=== PATIENT | female | born 1945 | race Caucasian/White ===

== ENCOUNTER 2016-11-11 23:00 | Inpatient (IN) | payer MEDICARE ==
--- NOTE | ~2016-11-11 | CN ---
Consultation Report [facility] [address] [place]. [address] NAME: LOUISE SANTACRUZ : 47 STATUS : ADM IN [facility]#: [id number] AGE: 71 ADM/REG DATE : 11/12/16 MR#: [id number] REPORT SERV DATE: 11/13/16 DICTATED BY: ERIN PANDYA DATE: 11/13/16 REPORT STATUS : Draft TRANSCRIBED BY: KRISTYN DATE: 11/13/16 INFECTIOUS DISEASE CONSULT DATE OF CONSULTATION: REFERRING PHYSICIAN: Tommy Ureña M.D. REASON FOR REFERRAL: Evaluation and treatment of possible sternal wound infection. HISTORY OF PRESENT ILLNESS: This patient is a 71-year-old female. She has a history of hypertension, diabetes mellitus, hyperlipidemia, peripheral vascular disease, coronary artery disease. She had coronary artery bypass grafting in 12/2015. She has known peripheral vascular disease in her legs and has had increasing pain and came in for that yesterday and was admitted. It was noted after admission that she had some drainage from her sternum. She states that that has been going on since shortly after the procedure in 2015. There was a culture done in 03/2015 that grew methicillin-sensitive Staph aureus. She had the wound care for about a year after the procedure in Dr. Espana's office and it would almost close and crust over, but has never gone away completely. She has had the wound care, been on no antibiotics for more than a year, and has not really troubled her other than occasional drainage. She has not had fevers, chills, or night sweats. No nausea or vomiting. No malaise or flu-like symptoms. Last evening, when the area was pressed, there was copious purulent drainage that has been submitted for culture and is growing Staph aureus already. She is afebrile now and feeling okay. PAST MEDICAL HISTORY: Otherwise unremarkable. MEDICATIONS: On no antibiotics prior to coming in. She is now on vancomycin. ALLERGIES: SHE HAS NO KNOWN ANTIMICROBIAL ALLERGIES. SOCIAL HISTORY: She lives at home with her sister. She is single. She is a nonsmoker, has no history of alcohol or substance abuse. FAMILY HISTORY: Noncontributory. PHYSICAL EXAMINATION: GENERAL: A nontoxic, elderly female, in no acute distress. Alert and oriented x3. VITAL SIGNS: Her temperature at present is 98.5, pulse 72, respirations 18, blood pressure 103/53, her weight is 89 kg. HEENT: Sclerae clear. No oral lesions. NECK: Supple. LUNGS: Clear. HEART: Regular rate and rhythm. A sternal incision has a shallow ulceration in the mid Consultation Report [facility] [address] [place]. [address] NAME: LOUISE SANTACRUZ : 47 STATUS : ADM IN PAT#: [id number] AGE: 71 ADM/REG DATE : 11/12/16 MR#: [id number] REPORT SERV DATE: 11/13/16 DICTATED BY: ERIN PANDYA DATE: 11/13/16 REPORT STATUS : Draft TRANSCRIBED BY: KRISTYN DATE: 11/13/16 sternum. Several centimeters above that is about a 1 centimeter opening with purulent drainage coming from it. ABDOMEN: Soft, nontender. Positive bowel sounds. EXTREMITIES: Mildly edematous. Very tender to touch both feet from the ankles down to the tips of the toes. No signs of infection. No open lesions or ulcerations. LABORATORY DATA: Her white count was 13.8 when she came in, 12.4 today with hematocrit of 29.5, and platelets 425. The differential on the white blood cell count is normal. BUN and creatinine 23 and 1.3. 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 There has been no systemic signs of infection and per the patient's history, no evidence that she has felt the progression locally and despite not being on any antibiotics for over a year. RECOMMENDATIONS: 1. Follow up the cultures from yesterday to get the final sensitivity on the organism. 2. We will cover with Ancef. 3. Agree with MRI to see the extent of this. 4. She stated she will not agree to any sort of surgery such as incision and drainage, so it may be we have to look at the situation of long-term suppression. Finally, I will follow the patient with you. I appreciate very much your consulting on this patient. JEREMIE Erin Pandya M.D. / [id number] CC: Matthew Layne MD
--- NOTE | ~2016-11-11 | OP ---
Record Of Operation [facility] [address] [place]. [address] NAME: LOUISE SANTACRUZ : 47 STATUS : ADM IN PAT#: [id number] AGE: 71 ADM/REG DATE : 11/12/16 MR#: [id number] REPORT SERV DATE: 11/18/16 DICTATED BY: TERRY MERAZ DATE: 11/18/16 REPORT STATUS : Draft TRANSCRIBED BY: MODL DATE: 11/18/16 DATE OF PROCEDURE: 11/14/2016 PREOPERATIVE DIAGNOSIS: Sternal wound infection (Dr. Espana's patient). POSTOPERATIVE DIAGNOSIS: Sternal wound infection (Dr. Espana's patient). PROCEDURE: I and D of sternum with removal of two plates and two wires and vacuum-assisted closure placement. MEDIA/INSTRUCTIONAL DESIGNER: Ruel Casas. ANESTHESIA: Dr. Grimes. FINDINGS: Midportion of the wound excised, bone is stable. COMPLICATIONS: None. CONDITION: Fair to PACU, will bring back next week for possible closure. DESCRIPTION OF PROCEDURE: After informed consent was obtained from the patient, she was brought to the operating room, laid in supine position, and prepped and draped in the normal fashion after general anesthesia was induced. The draining skin wound was incised sharply and dissection carried down through a very hard course, tough indurated tissue to the sternum. Bovie electrocautery was then used to expose both sternal plates that were involved in the wound and two separate wires that were involved in the wound. A screwdriver was then used to remove all screws and both plates. Wires were cut and removed. Approximately 2 L of pulse lavage irrigation was used to irrigate the entire wound bed. The bone was stable and did not appear infected. A VAC sponge was cut to an appropriate size and placed in the wound bed and set to 125 mm of continuous suction. The plan will be to bring her back early next week for possible closure. Thank you end dictation please send a copy this to the patient's chart as well as to the [facility] clinic care mining Terry GIPSON/KRISTYN Matthew Keller#: [id number] / [id number] CC: Matthew Layne MD Record Of Operation [address] [address] NAME: LOUISE SANTACRUZ : 47 STATUS : ADM IN PAT#: [id number] AGE: 71 ADM/REG DATE : 11/12/16 MR#: [id number] REPORT SERV DATE: 11/18/16 DICTATED BY: TERRY MERAZ DATE: 11/18/16 REPORT STATUS : Draft TRANSCRIBED BY: MODRebeka DATE: 11/18/16 [facility]
--- NOTE | ~2016-11-11 | CN ---
Consultation Report [facility] [address] [place]. [address] NAME: LOUISE SANTACRUZ : 47 STATUS : ADM IN [facility]#: [id number] AGE: 71 ADM/REG DATE : 11/12/16 MR#: [id number] REPORT SERV DATE: 11/19/16 DICTATED BY: TERRY MERAZ DATE: 11/18/16 REPORT STATUS : Draft TRANSCRIBED BY: MODRebeka DATE: 11/18/16 CONSULTATION DATE OF CONSULTATION: 11/13/2016 REFERRING PHYSICIAN: Infectious Disease. REASON FOR REFERRAL: Evaluation for operative intervention for sternal infection. HISTORY OF PRESENT ILLNESS: This is a 71-year-old female, who presented to the hospital for foot and leg pain and swelling. She describes her legs and feet as hot and burning. She says this has been going on for progressively a few weeks but has gotten recently worse in the last couple days. She reports chronic drainage from her sternal wound after a coronary artery bypass graft and mitral valve repair approximately a year and a half ago. This was performed by Dr. Rajendra Espana. She has been treated by him and his team for approximately one year for sternal incision drainage wounds and initially, there was improvement but more recently, over the last couple months, this has resumed drainage. PAST MEDICAL HISTORY: Significant for coronary artery disease, hypertension, hyperlipidemia, diabetes mellitus, congestive heart failure, CVA, UTI, MSSA bacteremia, peripheral artery disease, and carotid stenosis. PAST SURGICAL HISTORY: Includes coronary artery bypass grafting and mitral valve repair in 2014. SOCIAL HISTORY: She quit smoking in 2014. No alcohol or drug use. FAMILY HISTORY: Significant for end-stage renal disease, diabetes mellitus. ALLERGIES: NO KNOWN DRUG ALLERGIES. REVIEW OF SYSTEMS: Otherwise negative that which was stated in the HPI. PHYSICAL EXAMINATION: VITAL SIGNS: Blood pressure is 129/60, temperature 97.2, heart rate is 82, respiratory rate of 18, height of 167 cm and weight is 89.5 kg. GENERAL: She is afebrile and vital signs are all stable. HEENT: Normocephalic, atraumatic with no scleral icterus. NECK: Supple with no thyromegaly. CHEST: Clear to auscultation bilaterally with draining purulent drainage from the midportion of her sternal incision. HEART: Regular rate and rhythm with no murmurs, rubs, or gallops. ABDOMEN: Soft, nontender, and nondistended. Consultation Report [place] [address] [place]. [address] NAME: LOUISE SANTACRUZ : 47 STATUS : ADM IN PAT#: [id number] AGE: 71 ADM/REG DATE : 11/12/16 MR#: [id number] REPORT SERV DATE: 11/19/16 DICTATED BY: TERRY MERAZ DATE: 11/18/16 REPORT STATUS : Draft TRANSCRIBED BY: KRISTYN DATE: 11/18/16 EXTREMITIES: Warm with nonpalpable distal pulses. MUSCULOSKELETAL: Grossly intact. NEUROLOGIC: Grossly intact. IMPRESSION AND PLAN: Draining sternal wound status post coronary artery bypass graft and impression I do not believe a conservative take is appropriate at this time. I believe she needs operative intervention with debridement. This is being scheduled for , 11/14/2016. I have explained the risks, benefits, and alternatives of the surgery to her and she understands and wished to proceed with surgery. CCR/MODL Terry Meraz M.D. / [id number] CC: Matthew Layne MD [facility]
--- NOTE | ~2016-11-11 | CN ---
Consultation Report [facility] [address] [place]. [address] NAME: ALYSON SANTACRUZ : 47 STATUS : ADM IN [facility]#: [id number] AGE: 71 ADM/REG DATE : 11/12/16 MR#: [id number] REPORT SERV DATE: 11/19/16 DICTATED BY: NUSRAT RIBEIRO DATE: 11/15/16 REPORT STATUS : Draft TRANSCRIBED BY: KRISTYN DATE: 11/15/16 ORTHOPEDIC FOOT AND ANKLE CONSULTATION DATE OF CONSULTATION: REASON FOR CONSULTATION: Right great toe pain and swelling. HISTORY OF PRESENT ILLNESS: Alyson Santacruz is a pleasant 71-year-old female with a primary complaint of right foot pain, but also purulent drainage from the sternal wound from previous CABG. Upon admission, the patient noticed increasing weakness, lower extremity edema, and soreness and pain in her legs. She has some foot pain as well as calf pain. It is 10/10 in severity. She has been unable to walk because of the severity of her pain. She has been evaluated in the past by Dr. Felipe for known peripheral vascular disease. On the date of admission (11/12/2016), the patient also had some confusion and disorientation. CABG was in 2014. She has had chronic purulent drainage from this wound ever since that surgery. Limited pain. She denies chest pain. REVIEW OF SYSTEMS: The patient was in her usual state of good health at the time of the evaluation. She denied fevers, chills, nausea, vomiting, abdominal pain, shortness of breath, or chest pain. PAST MEDICAL HISTORY: Coronary artery disease, status post CABG in 2014; hypertension; cholesterol; diabetes with neuropathy; history of gout; congestive heart failure; stroke with bilateral basal ganglia lacunar; congestive heart failure with ejection fraction of 30%; mitral valve repair; urinary tract infection, MSSA bacteremia; and peripheral vascular disease. PAST SURGICAL HISTORY: CABG in 2015 and mitral valve repair. ALLERGIES: NO KNOWN DRUG ALLERGIES. SOCIAL HISTORY: She quit smoking in 2014. No alcohol abuse. She lives in [place], [place], with her sister. She is single without children. Ambulates with a cane. No alcohol use. MEDICATIONS: Upon admission include Goody's Powder, Lipitor, and Neurontin. PHYSICAL EXAMINATION: GENERAL: Reveals an age-appropriate female who is alert and oriented x3. VITAL SIGNS: Her temperature is 97.6, heart rate 72, respirations are 16, and BMI on 11/14/2016 was reported as 40. HEENT: Her pupils are equal to light and reactive. MUSCULOSKELETAL: No tenderness with range of motion of her cervical spine. Sternal dressings are placed. Consultation Report [place] [address] [facility]. [address] NAME: ALYSON SANTACRUZ : 47 STATUS : ADM IN PAT#: [id number] AGE: 71 ADM/REG DATE : 11/12/16 MR#: [id number] REPORT SERV DATE: 11/19/16 DICTATED BY: NUSRAT RIBEIRO DATE: 11/15/16 REPORT STATUS : Draft TRANSCRIBED BY: KRISTYN DATE: 11/15/16 ABDOMEN: Obese. EXTREMITIES: Gentle range of motion of her bilateral upper extremities and left lower extremities nontender. On the right great toe, there is exquisite tenderness with range of motion of the right hallux. There is surrounding erythema. There are no open skin lesions. There is mild tenderness to palpation of the MTP joint, but most of the tenderness seems to be at the IP joint level, which is where the most of the erythema is located. Dorsalis pedis and posterior tibial pulses are present, but diminished. No lymphatic streaking. No tenderness with range of motion of the midfoot, hindfoot, or ankle. Sensation to light touch is decreased in a "stocking" distribution bilaterally. X-RAYS: X-rays taken on 11/14/2016 shows periarticular erosions at the proximal phalanx. This was on the medial and lateral aspects of the joint. She also has a plantar and posterior calcaneal spur. Arterial Dopplers performed on 11/12/2016 are consistent with moderately severe peripheral vascular disease (see report). Venous Doppler exam on 11/14/2016 was negative for DVT bilaterally. IMPRESSION: 1. Gout, right great toe. 2. 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 3. Diabetes mellitus with neuropathy. 4. Bilateral peripheral vascular disease. PLAN: Lengthy discussion with the patient and her family regarding her diagnosis and treatment options. I think these symptoms all represent gout. She has a known history of gout with gout involving the right long finger of the DIP joint. She has a large tophi involving her hand at this specific joint. This pain in the right foot is acute. It came on suddenly. There is no history of skin lesions or skin defect. With her history of gout, the above-mentioned symptoms, as well as x-ray findings (periarticular erosions), I feel this represents gout. I would like to keep a close eye on her. I have asked her to be weightbearing as tolerated in a postop shoe. I would recommend anti-inflammatory medications or steroid medications if possible. We could also consider some of the gout medicines, particularly allopurinol which may decrease the size of the gouty tophus involving her right long finger. Colchicine would be another medicine, which may decrease her symptoms. Certainly, ice and elevation would be helpful as well. I appreciate the opportunity to participate in the care of this patient. Please feel free to call me on my cell phone at [phone]. Otherwise, I would like to see this patient in followup in my office. I gave her a copy of my business card. ADDENDUM Fifty minutes was spent reviewing this case including reviewing of the medical records as well as [id number] time with the patient and her visiting family members to discuss her diagnosis and treatment options. Consultation Report [address] [place]. [address] NAME: ALYSON SANTACRUZ : 47 STATUS : ADM IN [facility]#: [id number] AGE: 71 ADM/REG DATE : 11/12/16 MR#: [id number] REPORT SERV DATE: 11/19/16 DICTATED BY: NUSRAT RIBEIRO DATE: 11/15/16 REPORT STATUS : Draft TRANSCRIBED BY: KRISTYN DATE: 11/15/16 JENN/KRISTYN Nusrat Ribeiro MD / [id number] / [id number] CC: Matthew Layne MD
--- NOTE | ~2016-11-11 | DS ---
Discharge Summary [facility] [address] [place]. [address] NAME: LOUISE SANTACRUZ : 47 STATUS : ADM IN [facility]#: [id number] AGE: 71 ADM/REG DATE : 11/12/16 MR#: [id number] REPORT SERV DATE: 11/26/16 DICTATED BY: DEIDRE ROMERO DATE: 11/25/16 REPORT STATUS : Draft TRANSCRIBED BY: KRISTYN DATE: 11/25/16 ADMISSION DATE: 11/12/2016 DISCHARGE DATE: 11/25/2016 CONSULTATIONS: 1. Cardiothoracic Surgery, Dr. Terry Small. 2. Infectious Disease, Dr. Rafael Anaya. 3. Orthopedic Surgeon, Dr. Dickerson. PROCEDURE: I and D of sternum with removal of two plates and two wires and vacuum-assisted closure placement. INDICATION FOR PROCEDURE: Sternal wound infection. DISCHARGE DIAGNOSES: 1. Postoperative complication of a sternal wound infection. 2. History of coronary artery disease, status post CABG; peripheral arterial disease; hypertension; and diabetes mellitus. 3. Chronic systolic congestive heart failure, ejection fraction of 30%. 4. History of cerebrovascular accident with bilateral basal ganglia lacunar. 5. Mitral valve repair. 6. History of urinary tract infection. 7. History of methicillin-sensitive Staphylococcus aureus bacteremia. 8. Acute kidney injury. 9. Acute gouty arthritis. DISCHARGE CONDITION: Stable. HISTORY OF PRESENT ILLNESS: Please make reference to Dr. Tommy Ureña's dictation on 11/04/2016 for detailed HPI. In brief, this is a 71-year-old female with medical history of coronary artery disease who recently had a CABG but presented to the hospital with complaints of purulent drainage from a sternal wound. It was noted on presentation that the patient reported severe chest pain of 10/10 severity. The patient was also noted to be confused, to be disoriented on presentation. Most of the history was reported by the niece. Of note, the patient underwent CABG in 2014. In the ER, patient was found to have a temperature of 98.6, pulse of 97 beats per minute, and blood pressure 182/81. Physical examination was noted for a sternal wound that had a small ulcer and blister with surrounding slight erythema. LABORATORY DATA: Significant for WBC of 13.8, creatinine of 1.37 from a baseline of 0.9. Urinalysis was negative. Troponin was negative. CT scan of the head shows no acute intracranial process. An assessment of standard wound infection with encephalopathy due to sepsis was made in the ER, the patient was admitted to the hospital for further evaluation. HOSPITAL COURSE: Standard wound infection. The patient was reported to have had a coronary artery bypass surgery in 2014 but presented to the hospital during this admission with Discharge Summary [address] [address] NAME: LOUISE SANTACRUZ : 47 STATUS : ADM IN PAT#: [id number] AGE: 71 ADM/REG DATE : 11/12/16 MR#: [id number] REPORT SERV DATE: 11/26/16 DICTATED BY: DEIDRE ROMERO DATE: 11/25/16 REPORT STATUS : Draft TRANSCRIBED BY: KRISTYN DATE: 11/25/16 complaints of chest pain with purulent drainage from the sternal wound. Also noted to have some skin erythema and changes. The patient was also noted to be confused on presentation with presence of elevated WBC. Blood cultures were taken. The patient was started on IV Ancef given the previous history of MSSA bacteremia. Cardiothoracic surgery was consulted. They recommended an incision and drainage of the wound. ID was also consulted for IV antibiotics guidance. The patient underwent I and D drainage during the course of this admission with secondary closure with placement of a wound vacuum-assisted closure. Postop, the patient had no significant complication. ID recommended the patient to receive a total duration of four weeks of IV antibiotics. Given the presence of elevated WBC with acute confusion and tachycardia on presentation, the patient met criteria for sepsis. At the time of discharge, the patient had no further episode of tachycardia, WBC had returned back to baseline. The patient had no further episode of acute confusion. Memory was intact and alert. The patient was recommended to go to rehab for further rehabilitation due to prolonged hospital stay and physical deconditioning. The patient will receive IV antibiotics for four weeks at the rehab facilities. This was arranged prior to discharge. Acute kidney injury on chronic kidney disease, on presentation. The patient's creatinine was 1.3. The patient's last known baseline was 0.9. The patient received IV fluids, and the patient's creatinine returned back to baseline prior to discharge. Acute gouty arthritis of the right foot. The patient was also noted to have had an acute gout flare ups. Orthopedic surgeon was consulted. Given worsening foot pain by physical examination, it does confirm the patient had gout. The patient was started on p.o. prednisone with good response. After the acute flare had resolved, the patient was placed on allopurinol 100 mg p.o. b.i.d. for management of acute gouty arthritis. Chronic systolic heart failure. The patient remained euvolemic throughout the course of this admission. The patient was continued on all cardiac medications. Diabetes mellitus. The patient's blood sugar was tightly controlled with insulin during the course of this admission. DISCHARGE DISPOSITION: To [facility] when accepted. DISCHARGE ACTIVITY: As tolerated. DISCHARGE FOLLOWUP: To follow up with primary care physician as an outpatient. PATRICIA/KRISTYN Deidre Romero MD / [id number] Discharge Summary [address] [address] NAME: LOUISE SANTACRUZ : 47 STATUS : ADM IN [facility]#: [id number] AGE: 71 ADM/REG DATE : 11/12/16 MR#: [id number] REPORT SERV DATE: 11/26/16 DICTATED BY: DEIDRE ROMERO DATE: 11/25/16 REPORT STATUS : Draft TRANSCRIBED BY: KRISTYN DATE: 11/25/16 CC: MD Joseph Jones MD
--- NOTE | ~2016-11-11 | OP ---
Record Of Operation [facility] [address] [place]. [address] NAME: LOUISE SANTACRUZ : 47 STATUS : ADM IN PAT#: [id number] AGE: 71 ADM/REG DATE : 11/12/16 MR#: [id number] REPORT SERV DATE: 11/19/16 DICTATED BY: TERRY MERAZ DATE: 11/18/16 REPORT STATUS : Draft TRANSCRIBED BY: MODL DATE: 11/18/16 DATE OF PROCEDURE: 11/17/2016 PREOPERATIVE DIAGNOSIS: Sternal wound infection. POSTOPERATIVE DIAGNOSIS: Sternal wound infection. PROCEDURES: 1. Washout of sternal wound. 2. Bilateral pectoralis flaps. 3. Secondary closure. SURGEON: Terry Meraz M.D. DIAMOND CLEANER: Evelyn. FINDINGS: Good wound bed with stable drains with KANU x2. COMPLICATIONS: None. CONDITION: Stable to PACU. HISTORY: The patient is a 71-year-old female, who had undergone coronary artery bypass grafting and mitral valve repair by Dr. Espana, approximately a year and a half ago. She had presented to the hospital with draining purulent fluid and was brought to the operating room approximately 4 days prior for debridement of the wound. A VAC was placed. She was brought back for possible closure. DESCRIPTION OF PROCEDURE: After informed consent was obtained from the patient, she was brought to the operating room, laid in supine position. Previous VAC sponge was removed and she was prepped and draped in the normal fashion after general anesthesia was induced. Approximately 2 L of normal saline pulse lavage was performed to the wound bed. The bone was good and stable. Bilateral advancement flaps were made of the pectoralis muscle. KANU drains were placed under both flaps and brought out through a remote incision. Interrupted 2-0 PDS sutures were placed in a [id number] fashion to reapproximate the pectoralis flaps. The skin, subcutaneous, and subcuticular tissue were then brought together using Vicryl and Monocryl sutures. The skin was stapled. Overall the patient tolerated the procedure well and was transported to PACU in stable condition. CCR/MODL Terry Meraz M.D. Record Of Operation [facility] [address] [place] [id number] NAME: LOUISE SANTACRUZ : [birth year] STATUS : ADM IN PAT#: [id number] AGE: 71 ADM/REG DATE : 11/12/16 MR#: [id number] REPORT SERV DATE: 11/19/16 DICTATED BY: TERRY MERAZ DATE: 11/18/16 REPORT STATUS : Draft TRANSCRIBED BY: MODL DATE: 11/18/16 / [id number] CC: Matthew Layne MD [facility]
--- NOTE | ~2016-11-11 | HP ---
History And Physical [place] [id number] [facility] [place]. [address] NAME: LOUISE SANTACRUZ : 47 STATUS : ADM IN [facility]#: [id number] AGE: 71 ADM/REG DATE : 11/12/16 MR#: [id number] REPORT SERV DATE: 11/12/16 DICTATED BY: YOLANDA VALDEZ DATE: 11/12/16 REPORT STATUS : Draft TRANSCRIBED BY: MODL DATE: 11/12/16 DATE OF ADMISSION: 11/12/2016 CHIEF COMPLAINT: A 71-year-old female presenting with a primary complaint of leg pain, but also purulent drainage from her sternal wound from previous CABG. HISTORY OF PRESENTING ILLNESS: The patient's history was obtained through careful interview with patient and two nieces, coupled with review of [facility] and [facility]. The patient states that for a couple of days she has been having increasing weakness, lower extremity edema, and a primary complaint of soreness and pain in her legs. The pain is described mostly in her feet, but also up into her calves. It gets to a 10/10 severity pain. She has been unable to walk today because of severity of pain. She has been evaluated in the past by Dr. Felipe, vascular surgeon, for peripheral arterial disease. Then today, the patient became confused, disoriented, it is not being clear according to her nieces. She has had a chronic purulent drainage from her sternal wound ever since her CABG in 2014. She does not think it has increased in severity, but while in the emergency department, we were able to apply pressure and express a copious amount of purulent, foul-smelling debris. There is no pain with this however. The patient states she has no chest pain. No abdominal pain. No headache. No back pain. She has had no nausea or vomiting, but she has had a very poor appetite. No fevers or chills. No shortness of breath at this time. REVIEW OF SYSTEMS: Otherwise, a 14-point review of systems was obtained and was negative. PAST MEDICAL HISTORY: 1. Coronary artery disease, status post CABG in 2014. 2. Hypertension. 3. Elevated cholesterol. 4. Diabetes. 5. Systolic congestive heart failure. Ejection fraction of 30%. 6. Stroke, bilateral basal ganglia lacunar. 7. Mitral valve repair. 8. Urinary tract infection. 9. MSSA bacteremia. 10.Peripheral arterial disease. PAST SURGICAL HISTORY: 1. CABG in 2015. 2. Mitral valve repair. History And Physical [address] [address] NAME: LOUISE SANTACRUZ : [birth year] STATUS : ADM IN PAT#: [id number] AGE: 71 ADM/REG DATE : 11/12/16 MR#: [id number] REPORT SERV DATE: 11/12/16 DICTATED BY: YOLANDA VALDEZ DATE: 11/12/16 REPORT STATUS : Draft TRANSCRIBED BY: KRISTYN DATE: 11/12/16 ALLERGIES: NO KNOWN DRUG ALLERGIES. SOCIAL HISTORY: Quit smoking in 2014. No alcohol abuse. Lives in [place], [place] with her sister. She is single, has no children. Ambulates with a cane. No alcohol use. FAMILY HISTORY: Father of end-stage renal disease in his 40s. A strong family history of coronary artery disease, stroke, and diabetes. CURRENT MEDICATIONS: Include Goody's powder, Lipitor 40 mg daily, Neurontin 300 mg p.o. t.i.d. The patient at this time denies taking any specific cardiac medication. PHYSICAL EXAMINATION: VITAL SIGNS: Temperature 98.6, pulse 97, blood pressure 182/81, respiratory rate 18, O2 saturation 98% on room air. GENERAL: Pleasant, cooperative, female. She has an appearance of being chronically ill, but is in no particularly acute distress at this time. Although she continued to complain of the severe lower leg pain. HEENT: Pupils equal, round, and reactive to light. No conjunctival pallor. No scleral icterus. Nares are patent. Oropharynx is clear of obstruction. Dry mucous membranes. NECK: Trachea midline. No thyromegaly. LYMPH: No cervical lymphadenopathy. No supraclavicular lymphadenopathy. RESPIRATORY: Clear to auscultation at bases. No wheezes, no rales, no rhonchi. Normal respiratory effort. CARDIOVASCULAR: Regular rate and rhythm. No murmurs, rubs, or gallops. No extremity edema is appreciated at this time. ABDOMEN: Soft, nontender, nondistended. Normal bowel sounds auscultated throughout. No hepatosplenomegaly. DERMATOLOGICAL: The patient's sternal wound has a small ulceration and blister with surrounding slight erythema. No heat though and there is purulent drainage as mentioned in the HPI. Otherwise, cool dry extremities. No pallor. No cyanosis. Around the patient's ankles and feet, there is a patchy erythema with slight heat compared to the rest of her body. It is uncertain if this redness is emanating more from the joint or superficially? It is very tender to palpation. PSYCHIATRIC: Normal affect. Good mood. Alert and oriented x3. LABORATORY DATA: White blood count 13.8, hemoglobin 11, hematocrit 36, platelets 510. CRP is 238. Sodium 142, potassium 4.0, chloride 104, bicarb 29, BUN 26, creatinine 1.37 from baseline creatinine of 0.9, glucose 133. Urinalysis is negative for infection with 8 hyaline casts. Lactic acid 1.8. Troponin negative. STUDIES: 1. Chest x-ray by my own evaluation shows no acute cardiopulmonary process. 2. EKG by my own evaluation shows sinus tachycardia. 3. CT scan of the brain without contrast shows no acute intracranial process. ASSESSMENT AND PLAN: History And Physical [address] [address] NAME: LOUISE SANTACRUZ : 47 STATUS : ADM IN [facility]#: [id number] AGE: 71 ADM/REG DATE : 11/12/16 MR#: [id number] REPORT SERV DATE: 11/12/16 DICTATED BY: YOLANDA VALDEZ DATE: 11/12/16 REPORT STATUS : Draft TRANSCRIBED BY: KRISTYN DATE: 11/12/16 1. Systemic inflammatory response syndrome with white blood count of 13.8, a CRP of 238, pulse greater than 90, encephalopathy, and acute kidney injury. Check blood cultures. Place on IV antibiotics. Obtain Infectious Disease consult. 2. Cellulitis versus inflammatory arthritis. History of MSSA bacteremia though. We will try IV antibiotics. Check uric acid. Check ESR. 3. Peripheral arterial disease. Check an arterial Doppler ultrasound of lower extremities. 4. Acute kidney injury. Place on IV fluids. 5. Diabetes. Check hemoglobin A1c. Place on sliding scale insulin. The patient was apparently not on any outpatient diabetic medications. 6. Coronary artery disease, history of CABG in 2014. Start aspirin again. 7. Sternal wound with copious drainage. We will obtain the wound culture, a wound care consult. Consult cardiothoracic surgery. Check an MRI of the sternum to define extent and severity of possible infection? KPL/MODL Yolanda Valdez M.D. / [id number] CC: Matthew Layne MD Charles Scott Joels, M.D.
--- NOTE | ~2016-11-11 | DS ---
Discharge Summary [facility] [address] [place]. [address] NAME: LOUISE SANTACRUZ : 47 STATUS : DIS IN PAT#: [id number] AGE: 71 ADM/REG DATE : 11/12/16 MR#: [id number] REPORT SERV DATE: 11/28/16 DICTATED BY: CANDE QUIJANO DATE: 11/27/16 REPORT STATUS : Draft TRANSCRIBED BY: MODL DATE: 11/27/16 ADMISSION DATE: 11/12/2016 DISCHARGE DATE: 11/27/2016 DISCHARGE DIAGNOSES: 1. 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 Status post wash of the sternal wound and secondary closer done by Dr. Small. 2. Acute kidney injury on chronic kidney disease, back to her normal. 3. Right foot acute gouty arthritis, was treated with a dose of steroid and allopurinol was started on this admission. 4. Chronic peripheral vascular disease, seen by Dr. Felipe in the outside hospital prior to this admission, very recently. The patient needs close followup. There is no acute presentation from this peripheral vascular disease. 5. Chronic heart failure, systolic dysfunction, stable and decompensated due to hospitalization. 6. Diabetes mellitus. 7. BMI of 40. CONSULTANTS: 1. Dr. Anaya. 2. Dr. Small. 3. Dr. Dickerson. HISTORY OF PRESENT ILLNESS: This is 71-year-old female patient, initially came to the hospital with foot pain and purulent drainage from her sternal wound from previous CABG two years ago. Please see dictated H and P. HOSPITAL COURSE: She was admitted to hospital with a finding of the sternal wound infection with multiple other medical problems. She was checked for any infection and cultures from the sternal wound is coming positive with MSSA. Initial CABG and sternal wound care was done through Dr. Espana when he was still working in this hospital. Dr. Small was consulted for the sternal wound infection, more likely chronic osteomyelitis and Dr. Small decided to do the surgical I and D for this patient. Had first I and D and hardware removal done with him. She tolerated very well at that time. She was put on wound VAC and then had a secondary closure in five days. She tolerated all of these treatment very well, and Dr. Anaya has been managing her antibiotics with Ancef. Dr. Anaya recommended six weeks of Ancef treatment for this wound infection. Meanwhile, she also presented with acute foot pain. Had x-ray of this foot done. It showed possible osteomyelitis. Therefore, orthopedic surgeon was consulted. Dr. Dickerson saw this patient and he felt it is related with gouty arthritis, so a gout medicine was started. She was treated with a dose of steroid and had a significant improvement. The redness and tenderness all subsided along with the treatment. Therefore, she was put on allopurinol maintaining medication twice a day with 100 mg tablets. She is tolerating all this Discharge Summary [address] [address] NAME: LOUISE SANTACRUZ : 47 STATUS : DIS IN [facility]#: [id number] AGE: 71 ADM/REG DATE : 11/12/16 MR#: [id number] REPORT SERV DATE: 11/28/16 DICTATED BY: CANDE QUIJANO DATE: 11/27/16 REPORT STATUS : Draft TRANSCRIBED BY: KRISTYN DATE: 11/27/16 treatment very well. She does have chronic vascular disease probably affecting both legs from the iliac artery. Based on the arterial Doppler that was obtained from this admission. However, patient saw Dr. Felipe a few days prior to this admission and Dr. Felipe did not think the patient need anything emergent intervention. Again, her foot pain was related with her gouty arthritis rather than the chronic vascular disease. The patient was seen by Dr. Felipe in the hospital and recommended continuing the outpatient followup. She does have a chronic heart failure, diabetes, renal disease. Those are stable throughout the hospitalization. Overall, had a long hospitalization. Initial disposition was made to [facility]; however, her insurance declined her acute rehab stay. Therefore, she [facility]. DISCHARGE MEDICATION: 1. Allopurinol 100 mg twice a day. 2. Aspirin 325 mg once a day. 3. Lipitor 40 mg once a day. 4. Coreg 12.5 mg twice a day. 5. Ancef 2 g every eight hours. 6. Neurontin 300 mg twice a day. 7. MiraLAX powder once a day. 8. Lasix 20 mg once a day. 9. Glucophage 500 mg once a day. 10.Hydrocodone was given through the surgery. DISPOSITION: The patient is discharged to [facility] for rehab. TIME SPENT: More than 30 minutes. EKL/MODL Cande Quijano M.D. / [id number] CC: Matthew Layne MD
[~2016-11-11 23:00] MED LIST: ACET500CAP PO; ADVIL PO; AMOXIL500 MG PO; ASAB PO; AUG500 PO; CLARIT10 PO; COREG12 PO; KLOR-CON M2020 MEQ PO; L40 PO; LIPITOR40 PO; NORCO1 TA1 PO; NORV10 PO; PRILO PO; PRIN20 PO; SPIRO25 PO; STOOL SOFTNER OTC PO
[2016-11-12 01:52] LABS: BASOPHILS 0.3 %; BASOPHILS ABSOLUTE 0.04 10/3/uL (0.0-0.16); EOSINOPHILS 0.6 %; EOSINOPHILS ABSOLUTE 0.08 10/3/uL (0.0-0.53); ER CBC TAT 0 Hrs 11 Mins; HEMOGLOBIN 11.6 g/dL (12.0-16.0); IMMATURE GRANULOCYTES 0.2 %; IMMATURE GRANULOCYTES ABSOLUTE 0.03 10/3/uL (0.0-0.11); LYMPHOCYTES 14.9 %; LYMPHOCYTES ABSOLUTE 2.06 10/3/uL (0.67-4.30); MANUAL DIFF NO %; MEAN CORPUS HGB CONC 32.2 g/dL (32.0-36.0); MEAN CORPUSCULAR HEMOGLOB 28.4 pg (26.0-34.0); MEAN PLATELET VOLUME 8.7 fL (9.2-13.0); MONOCYTES 7.6 %; MONOCYTES ABSOLUTE 1.05 10/3/uL (0.21-1.20); NEUTROPHILS 76.4 %; NEUTROPHILS ABSOLUTE 10.53 10/3/uL (2.02-8.40); PLATELET COUNT 510 10/3/uL (150-400); RBC DISTRIBUTION WIDTH 14.4 % (12.0-16.0); RED CELL COUNT 4.09 10/6/uL (4.0-5.6); WHITE BLOOD CELLS 13.8 10/3/uL (4.5-10.5)
[2016-11-12 02:09] LABS: A/G RATIO 0.6 (0.7-1.9); ALBUMIN 3.1 G/DL (3.5-5.0); ALKALINE PHOSPHATASE 105 U/L (45-117); BUN (BLOOD UREA NITROGEN) 26 MG/DL (6-23); CALCIUM, SERUM 9.9 MG/DL (8.5-10.4); CHLORIDE, SERUM 104 MMOL/L (96-112); CO2 (CARBON DIOXIDE) 24 MMOL/L (24-34); CREATININE 1.37 MG/DL (0.55-1.02); GFR AFRICAN AMERICAN 45 ML/MIN (>=60); GFR NON AFRICAN AMERICAN 39 ML/MIN (>=60); GLOBULIN 5.5 G/DL (2.5-4.1); GLUCOSE, SERUM 133 MG/DL (60-99); POTASSIUM, SERUM 4.6 MMOL/L (3.5-5.3); SGOT(AST) 14 U/L (5-40); SGPT(ALT) 9 U/L (5-65); SODIUM, SERUM 142 MMOL/L (135-148); TOTAL BILIRUBIN 0.9 MG/DL (0-1.2); TOTAL PROTEIN 8.6 G/DL (6.0-8.5); TROPONIN I <0.02 NG/ML (<0.05)
[2016-11-12 03:13] LABS: ASCORBIC ACID (UR NOT ORDER) NEG (NEG); BILIRUBIN, URINE NEGATIVE (NEG); ER URINALYSIS TAT 0 Hrs 00 Mins; KETONE, URINE NEGATIVE (NEG); LEUKOCYTE ESTERASE(NOT OR NEG (NEG); NITRITE (URINE) NEG (NEG); WBC (NOT ORDERED) (RFLEX) 1 (0-5)
[2016-11-12 03:18] LABS: LACTATE 1.6 MMOL/L (0.3-2.4)
[2016-11-12 03:50] LABS: PROCALCITONIN 0.1 ng/mL (<0.5)
[2016-11-12] MEDS ORDERED: LIPITOR40 PO (03:55)
[2016-11-12] MEDS ORDERED: NEUR300 PO (03:55)
[2016-11-12] MEDS ORDERED: *UNABLE1 (03:56)
[2016-11-12] MEDS ORDERED: GOODY'S EX-STR1 EAC1 PO (03:58)
[2016-11-12] MEDS ORDERED: COREG12 PO (11:00)
[2016-11-12] MEDS ORDERED: ZESTRIL20 MG PO (11:00)
[2016-11-12] MEDS ORDERED: L20 PO (11:00)
[2016-11-12] MEDS ORDERED: SPIRO25 PO (11:01)
[2016-11-12] MEDS ORDERED: GLUCPH PO (11:01)
[2016-11-12] MEDS ORDERED: ADVIL PO (11:01)
[2016-11-12 11:50] LABS: BASOPHILS 0.2 %; BASOPHILS ABSOLUTE 0.02 10/3/uL (0.0-0.16); EOSINOPHILS 0.7 %; EOSINOPHILS ABSOLUTE 0.08 10/3/uL (0.0-0.53); HEMOGLOBIN 9.4 g/dL (12.0-16.0); IMMATURE GRANULOCYTES 0.1 %; IMMATURE GRANULOCYTES ABSOLUTE 0.01 10/3/uL (0.0-0.11); LYMPHOCYTES 18.8 %; LYMPHOCYTES ABSOLUTE 2.17 10/3/uL (0.67-4.30); MEAN CORPUS HGB CONC 32.8 g/dL (32.0-36.0); MEAN CORPUSCULAR HEMOGLOB 28.1 pg (26.0-34.0); MEAN CORPUSCULAR VOLUME 85.9 fL (80-100); MEAN PLATELET VOLUME 8.5 fL (9.2-13.0); MONOCYTES 6.7 %; MONOCYTES ABSOLUTE 0.77 10/3/uL (0.21-1.20); NEUTROPHILS 73.5 %; NEUTROPHILS ABSOLUTE 8.48 10/3/uL (2.02-8.40); PLATELET COUNT 431 10/3/uL (150-400); RBC DISTRIBUTION WIDTH 14.5 % (12.0-16.0); RED CELL COUNT 3.34 10/6/uL (4.0-5.6); WHITE BLOOD CELLS 11.5 10/3/uL (4.5-10.5)
[2016-11-12 11:51] LABS: HEMATOCRIT 28.7 % (36.0-48.0); MANUAL DIFF NO %
[2016-11-12 11:55] LABS: BE (BASE EXCESS) -4.9 MEQ/L (0 +/- 2.5); CARBOXYHEMOGLOBIN 1.3 % (0-3); DEVICE ROOM AIR; HCO3 (ACTUAL BICARBONATE) 18.7 MEQ/L (23-27); INSTRUMENT SERIAL # 8087; METHEMOGLOBIN 0.3 % (0-3); O2 CONTENT 14.6 VOL% (18-24); PCO2 (CO2 TENSION) 30 MMHG (35-45); PO2 (O2 TENSION) 81 MMHG (79-93); SAMPLE Arterial; pH 7.42 (7.37-7.43)
[2016-11-12 11:57] LABS: INTERNATIONAL NORMAL RATI 1.3 UNITS (-); PROTIME (NOT ORD) 15.9 SEC (12.0-14.5)
[2016-11-12 12:14] LABS: CHLORIDE, SERUM 108 MMOL/L (96-112); CO2 (CARBON DIOXIDE) 23 MMOL/L (24-34); GFR AFRICAN AMERICAN 53 ML/MIN (>=60); GFR NON AFRICAN AMERICAN 46 ML/MIN (>=60); GLUCOSE, SERUM 156 MG/DL (60-99); POTASSIUM, SERUM 4.2 MMOL/L (3.5-5.3); SGOT(AST) 13 U/L (5-40); SGPT(ALT) 6 U/L (5-65); SODIUM, SERUM 140 MMOL/L (135-148); TOTAL BILIRUBIN 0.7 MG/DL (0-1.2)
[2016-11-12 12:15] LABS: A/G RATIO 0.5 (0.7-1.9); ALBUMIN 2.4 G/DL (3.5-5.0); ALKALINE PHOSPHATASE 77 U/L (45-117); BUN (BLOOD UREA NITROGEN) 22 MG/DL (6-23); CALCIUM, SERUM 8.8 MG/DL (8.5-10.4); GLOBULIN 4.4 G/DL (2.5-4.1); TOTAL PROTEIN 6.8 G/DL (6.0-8.5)
[2016-11-12] MEDS ORDERED: NEUR100 PO (12:31)
[2016-11-12 12:36] LABS: SED RATE 102 MM/HR (0-20)
[2016-11-13 05:18] LABS: BASOPHILS 0.2 %; BASOPHILS ABSOLUTE 0.03 10/3/uL (0.0-0.16); EOSINOPHILS 2.3 %; EOSINOPHILS ABSOLUTE 0.29 10/3/uL (0.0-0.53); HEMATOCRIT 29.5 % (36.0-48.0); HEMOGLOBIN 9.3 g/dL (12.0-16.0); IMMATURE GRANULOCYTES 0.2 %; IMMATURE GRANULOCYTES ABSOLUTE 0.03 10/3/uL (0.0-0.11); LYMPHOCYTES 21.8 %; LYMPHOCYTES ABSOLUTE 2.71 10/3/uL (0.67-4.30); MEAN CORPUS HGB CONC 31.5 g/dL (32.0-36.0); MEAN CORPUSCULAR HEMOGLOB 27.8 pg (26.0-34.0); MEAN CORPUSCULAR VOLUME 88.1 fL (80-100); MEAN PLATELET VOLUME 8.6 fL (9.2-13.0); MONOCYTES 9.7 %; NEUTROPHILS 65.8 %; NEUTROPHILS ABSOLUTE 8.15 10/3/uL (2.02-8.40); PLATELET COUNT 424 10/3/uL (150-400); RBC DISTRIBUTION WIDTH 14.5 % (12.0-16.0); RED CELL COUNT 3.35 10/6/uL (4.0-5.6); WHITE BLOOD CELLS 12.4 10/3/uL (4.5-10.5)
[2016-11-13 05:22] LABS: MANUAL DIFF NO %
[2016-11-13 05:29] LABS: BUN (BLOOD UREA NITROGEN) 23 MG/DL (6-23); CALCIUM, SERUM 8.8 MG/DL (8.5-10.4); CHLORIDE, SERUM 109 MMOL/L (96-112); CO2 (CARBON DIOXIDE) 25 MMOL/L (24-34); CREATININE 1.33 MG/DL (0.55-1.02); GFR AFRICAN AMERICAN 47 ML/MIN (>=60); GFR NON AFRICAN AMERICAN 40 ML/MIN (>=60); POTASSIUM, SERUM 4.4 MMOL/L (3.5-5.3); SODIUM, SERUM 143 MMOL/L (135-148)
[2016-11-13 05:30] LABS: GLUCOSE, SERUM 107 MG/DL (60-99)
[2016-11-14 00:41] LABS: POTASSIUM, SERUM 4.9 MMOL/L (3.5-5.3)
[2016-11-14 04:53] LABS: BASOPHILS 0.2 %; BASOPHILS ABSOLUTE 0.03 10/3/uL (0.0-0.16); EOSINOPHILS 3.3 %; EOSINOPHILS ABSOLUTE 0.42 10/3/uL (0.0-0.53); HEMATOCRIT 30.5 % (36.0-48.0); HEMOGLOBIN 9.6 g/dL (12.0-16.0); IMMATURE GRANULOCYTES 0.3 %; IMMATURE GRANULOCYTES ABSOLUTE 0.04 10/3/uL (0.0-0.11); LYMPHOCYTES 20.1 %; LYMPHOCYTES ABSOLUTE 2.55 10/3/uL (0.67-4.30); MEAN CORPUS HGB CONC 31.5 g/dL (32.0-36.0); MEAN CORPUSCULAR HEMOGLOB 27.6 pg (26.0-34.0); MEAN CORPUSCULAR VOLUME 87.6 fL (80-100); MEAN PLATELET VOLUME 8.7 fL (9.2-13.0); MONOCYTES 8.5 %; MONOCYTES ABSOLUTE 1.08 10/3/uL (0.21-1.20); NEUTROPHILS 67.6 %; NEUTROPHILS ABSOLUTE 8.57 10/3/uL (2.02-8.40); PLATELET COUNT 431 10/3/uL (150-400); RBC DISTRIBUTION WIDTH 14.6 % (12.0-16.0); RED CELL COUNT 3.48 10/6/uL (4.0-5.6); WHITE BLOOD CELLS 12.7 10/3/uL (4.5-10.5)
[2016-11-14 04:54] LABS: MANUAL DIFF NO %
[2016-11-14 05:12] LABS: BUN (BLOOD UREA NITROGEN) 26 MG/DL (6-23); CALCIUM, SERUM 8.9 MG/DL (8.5-10.4); CHLORIDE, SERUM 105 MMOL/L (96-112); CO2 (CARBON DIOXIDE) 25 MMOL/L (24-34); CREATININE 1.29 MG/DL (0.55-1.02); GFR AFRICAN AMERICAN 49 ML/MIN (>=60); GFR NON AFRICAN AMERICAN 42 ML/MIN (>=60); GLUCOSE, SERUM 115 MG/DL (60-99); POTASSIUM, SERUM 4.4 MMOL/L (3.5-5.3); SODIUM, SERUM 140 MMOL/L (135-148)
[2016-11-15 03:54] LABS: BASOPHILS 0.3 %; BASOPHILS ABSOLUTE 0.03 10/3/uL (0.0-0.16); EOSINOPHILS 3.6 %; EOSINOPHILS ABSOLUTE 0.42 10/3/uL (0.0-0.53); HEMATOCRIT 28.5 % (36.0-48.0); IMMATURE GRANULOCYTES 0.2 %; IMMATURE GRANULOCYTES ABSOLUTE 0.02 10/3/uL (0.0-0.11); LYMPHOCYTES 24.6 %; LYMPHOCYTES ABSOLUTE 2.89 10/3/uL (0.67-4.30); MEAN CORPUS HGB CONC 31.6 g/dL (32.0-36.0); MEAN CORPUSCULAR HEMOGLOB 27.7 pg (26.0-34.0); MEAN CORPUSCULAR VOLUME 87.7 fL (80-100); MEAN PLATELET VOLUME 8.6 fL (9.2-13.0); MONOCYTES 7.6 %; MONOCYTES ABSOLUTE 0.89 10/3/uL (0.21-1.20); NEUTROPHILS 63.7 %; PLATELET COUNT 461 10/3/uL (150-400); RBC DISTRIBUTION WIDTH 14.6 % (12.0-16.0); RED CELL COUNT 3.25 10/6/uL (4.0-5.6); WHITE BLOOD CELLS 11.8 10/3/uL (4.5-10.5)
[2016-11-15 03:55] LABS: MANUAL DIFF NO %
[2016-11-15 04:17] LABS: A/G RATIO 0.5 (0.7-1.9); ALBUMIN 2.2 G/DL (3.5-5.0); ALKALINE PHOSPHATASE 74 U/L (45-117); BUN (BLOOD UREA NITROGEN) 29 MG/DL (6-23); CALCIUM, SERUM 8.5 MG/DL (8.5-10.4); CHLORIDE, SERUM 102 MMOL/L (96-112); CO2 (CARBON DIOXIDE) 25 MMOL/L (24-34); GFR AFRICAN AMERICAN 40 ML/MIN (>=60); GFR NON AFRICAN AMERICAN 35 ML/MIN (>=60); GLOBULIN 4.3 G/DL (2.5-4.1); GLUCOSE, SERUM 133 MG/DL (60-99); POTASSIUM, SERUM 4.3 MMOL/L (3.5-5.3); SGOT(AST) 15 U/L (5-40); SGPT(ALT) 8 U/L (5-65); SODIUM, SERUM 138 MMOL/L (135-148); TOTAL BILIRUBIN 1.1 MG/DL (0-1.2); TOTAL PROTEIN 6.5 G/DL (6.0-8.5)
[2016-11-16 05:38] LABS: BUN (BLOOD UREA NITROGEN) 30 MG/DL (6-23); CALCIUM, SERUM 8.9 MG/DL (8.5-10.4); CHLORIDE, SERUM 105 MMOL/L (96-112); CO2 (CARBON DIOXIDE) 24 MMOL/L (24-34); CREATININE 1.39 MG/DL (0.55-1.02); GFR AFRICAN AMERICAN 44 ML/MIN (>=60); GFR NON AFRICAN AMERICAN 38 ML/MIN (>=60); GLUCOSE, SERUM 110 MG/DL (60-99); POTASSIUM, SERUM 4.3 MMOL/L (3.5-5.3); SODIUM, SERUM 142 MMOL/L (135-148)
[2016-11-17 06:57] LABS: BUN (BLOOD UREA NITROGEN) 27 MG/DL (6-23); CALCIUM, SERUM 9.2 MG/DL (8.5-10.4); CHLORIDE, SERUM 104 MMOL/L (96-112); CO2 (CARBON DIOXIDE) 26 MMOL/L (24-34); CREATININE 1.41 MG/DL (0.55-1.02); GFR AFRICAN AMERICAN 44 ML/MIN (>=60); GFR NON AFRICAN AMERICAN 38 ML/MIN (>=60); GLUCOSE, SERUM 190 MG/DL (60-99); POTASSIUM, SERUM 4.7 MMOL/L (3.5-5.3); SODIUM, SERUM 140 MMOL/L (135-148)
[2016-11-18 05:49] LABS: BASOPHILS 0.2 %; BASOPHILS ABSOLUTE 0.05 10/3/uL (0.0-0.16); EOSINOPHILS 0.8 %; EOSINOPHILS ABSOLUTE 0.16 10/3/uL (0.0-0.53); HEMOGLOBIN 9.9 g/dL (12.0-16.0); IMMATURE GRANULOCYTES 0.3 %; IMMATURE GRANULOCYTES ABSOLUTE 0.06 10/3/uL (0.0-0.11); LYMPHOCYTES 24.1 %; LYMPHOCYTES ABSOLUTE 4.98 10/3/uL (0.67-4.30); MEAN CORPUS HGB CONC 31.2 g/dL (32.0-36.0); MEAN CORPUSCULAR HEMOGLOB 27.3 pg (26.0-34.0); MEAN CORPUSCULAR VOLUME 87.6 fL (80-100); MEAN PLATELET VOLUME 8.8 fL (9.2-13.0); MONOCYTES 5.4 %; MONOCYTES ABSOLUTE 1.11 10/3/uL (0.21-1.20); NEUTROPHILS 69.2 %; NEUTROPHILS ABSOLUTE 14.27 10/3/uL (2.02-8.40); RBC DISTRIBUTION WIDTH 14.5 % (12.0-16.0); RED CELL COUNT 3.62 10/6/uL (4.0-5.6)
[2016-11-18 05:53] LABS: WHITE BLOOD CELLS 20.6 10/3/uL (4.5-10.5)
[2016-11-18 05:54] LABS: HEMATOCRIT 31.7 % (36.0-48.0); MANUAL DIFF NO %; PLATELET COUNT 691 10/3/uL (150-400)
[2016-11-18 05:57] LABS: CHLORIDE, SERUM 104 MMOL/L (96-112); CO2 (CARBON DIOXIDE) 29 MMOL/L (24-34); CREATININE 1.47 MG/DL (0.55-1.02); GFR AFRICAN AMERICAN 41 ML/MIN (>=60); GFR NON AFRICAN AMERICAN 36 ML/MIN (>=60); POTASSIUM, SERUM 4.9 MMOL/L (3.5-5.3); SODIUM, SERUM 142 MMOL/L (135-148)
[2016-11-18 05:58] LABS: BUN (BLOOD UREA NITROGEN) 36 MG/DL (6-23); GLUCOSE, SERUM 101 MG/DL (60-99)
[2016-11-18 06:02] LABS: INTERNATIONAL NORMAL RATI 1.1 UNITS (-); PROTIME (NOT ORD) 14.3 SEC (12.0-14.5)
[2016-11-19 16:07] LABS: BASOPHILS 0.2 %; BASOPHILS ABSOLUTE 0.03 10/3/uL (0.0-0.16); EOSINOPHILS 4.1 %; EOSINOPHILS ABSOLUTE 0.57 10/3/uL (0.0-0.53); HEMATOCRIT 29.1 % (36.0-48.0); HEMOGLOBIN 9.1 g/dL (12.0-16.0); IMMATURE GRANULOCYTES 0.4 %; IMMATURE GRANULOCYTES ABSOLUTE 0.05 10/3/uL (0.0-0.11); LYMPHOCYTES 18.9 %; LYMPHOCYTES ABSOLUTE 2.61 10/3/uL (0.67-4.30); MEAN CORPUS HGB CONC 31.3 g/dL (32.0-36.0); MEAN CORPUSCULAR HEMOGLOB 27.8 pg (26.0-34.0); MEAN PLATELET VOLUME 8.8 fL (9.2-13.0); MONOCYTES 6.1 %; MONOCYTES ABSOLUTE 0.85 10/3/uL (0.21-1.20); NEUTROPHILS 70.3 %; NEUTROPHILS ABSOLUTE 9.72 10/3/uL (2.02-8.40); PLATELET COUNT 641 10/3/uL (150-400); RBC DISTRIBUTION WIDTH 14.6 % (12.0-16.0); RED CELL COUNT 3.27 10/6/uL (4.0-5.6); WHITE BLOOD CELLS 13.8 10/3/uL (4.5-10.5)
[2016-11-19 16:09] LABS: MANUAL DIFF NO %
[2016-11-19 16:18] LABS: ALBUMIN 2.2 G/DL (3.5-5.0); BUN (BLOOD UREA NITROGEN) 36 MG/DL (6-23); CALCIUM, SERUM 8.4 MG/DL (8.5-10.4); CHLORIDE, SERUM 100 MMOL/L (96-112); CO2 (CARBON DIOXIDE) 30 MMOL/L (24-34); CREATININE 1.79 MG/DL (0.55-1.02); GFR AFRICAN AMERICAN 33 ML/MIN (>=60); GFR NON AFRICAN AMERICAN 28 ML/MIN (>=60); PHOSPHORUS, SERUM 3.4 MG/DL (2.5-4.5); POTASSIUM, SERUM 4.5 MMOL/L (3.5-5.3); SODIUM, SERUM 138 MMOL/L (135-148)
[2016-11-19 16:19] LABS: GLUCOSE, SERUM 176 MG/DL (60-99)
[2016-11-20 07:05] LABS: BASOPHILS 0.2 %; BASOPHILS ABSOLUTE 0.03 10/3/uL (0.0-0.16); EOSINOPHILS 5.1 %; HEMATOCRIT 27.5 % (36.0-48.0); HEMOGLOBIN 8.6 g/dL (12.0-16.0); IMMATURE GRANULOCYTES 0.4 %; IMMATURE GRANULOCYTES ABSOLUTE 0.06 10/3/uL (0.0-0.11); LYMPHOCYTES 22.6 %; LYMPHOCYTES ABSOLUTE 3.09 10/3/uL (0.67-4.30); MEAN CORPUS HGB CONC 31.3 g/dL (32.0-36.0); MEAN CORPUSCULAR HEMOGLOB 27.5 pg (26.0-34.0); MEAN CORPUSCULAR VOLUME 87.9 fL (80-100); MEAN PLATELET VOLUME 8.6 fL (9.2-13.0); MONOCYTES 6.7 %; MONOCYTES ABSOLUTE 0.92 10/3/uL (0.21-1.20); NEUTROPHILS ABSOLUTE 8.88 10/3/uL (2.02-8.40); PLATELET COUNT 577 10/3/uL (150-400); RBC DISTRIBUTION WIDTH 14.9 % (12.0-16.0); RED CELL COUNT 3.13 10/6/uL (4.0-5.6); WHITE BLOOD CELLS 13.7 10/3/uL (4.5-10.5)
[2016-11-20 07:08] LABS: MANUAL DIFF NO %
[2016-11-20 07:18] LABS: BUN (BLOOD UREA NITROGEN) 35 MG/DL (6-23); CALCIUM, SERUM 8.7 MG/DL (8.5-10.4); CHLORIDE, SERUM 103 MMOL/L (96-112); CO2 (CARBON DIOXIDE) 29 MMOL/L (24-34); CREATININE 1.46 MG/DL (0.55-1.02); GFR AFRICAN AMERICAN 42 ML/MIN (>=60); GFR NON AFRICAN AMERICAN 36 ML/MIN (>=60); POTASSIUM, SERUM 4.9 MMOL/L (3.5-5.3); SODIUM, SERUM 139 MMOL/L (135-148)
[2016-11-20 07:19] LABS: GLUCOSE, SERUM 131 MG/DL (60-99)
[2016-11-21 04:37] LABS: BASOPHILS 0.3 %; BASOPHILS ABSOLUTE 0.04 10/3/uL (0.0-0.16); EOSINOPHILS 4.8 %; EOSINOPHILS ABSOLUTE 0.65 10/3/uL (0.0-0.53); HEMATOCRIT 26.2 % (36.0-48.0); HEMOGLOBIN 8.2 g/dL (12.0-16.0); IMMATURE GRANULOCYTES 0.4 %; IMMATURE GRANULOCYTES ABSOLUTE 0.05 10/3/uL (0.0-0.11); LYMPHOCYTES 24.8 %; LYMPHOCYTES ABSOLUTE 3.35 10/3/uL (0.67-4.30); MEAN CORPUS HGB CONC 31.3 g/dL (32.0-36.0); MEAN CORPUSCULAR HEMOGLOB 27.9 pg (26.0-34.0); MEAN CORPUSCULAR VOLUME 89.1 fL (80-100); MEAN PLATELET VOLUME 8.7 fL (9.2-13.0); MONOCYTES 6.1 %; MONOCYTES ABSOLUTE 0.82 10/3/uL (0.21-1.20); NEUTROPHILS 63.6 %; NEUTROPHILS ABSOLUTE 8.58 10/3/uL (2.02-8.40); PLATELET COUNT 568 10/3/uL (150-400); RED CELL COUNT 2.94 10/6/uL (4.0-5.6); WHITE BLOOD CELLS 13.5 10/3/uL (4.5-10.5)
[2016-11-21 04:42] LABS: MANUAL DIFF NO %
[2016-11-21 04:51] LABS: ALBUMIN 2.1 G/DL (3.5-5.0); BUN (BLOOD UREA NITROGEN) 33 MG/DL (6-23); CALCIUM, SERUM 8.4 MG/DL (8.5-10.4); CHLORIDE, SERUM 103 MMOL/L (96-112); CO2 (CARBON DIOXIDE) 28 MMOL/L (24-34); CREATININE 1.23 MG/DL (0.55-1.02); GFR AFRICAN AMERICAN 51 ML/MIN (>=60); GFR NON AFRICAN AMERICAN 44 ML/MIN (>=60); PHOSPHORUS, SERUM 3.6 MG/DL (2.5-4.5); POTASSIUM, SERUM 4.9 MMOL/L (3.5-5.3); SODIUM, SERUM 140 MMOL/L (135-148)
[2016-11-21 04:54] LABS: GLUCOSE, SERUM 104 MG/DL (60-99)
[2016-11-22 05:27] LABS: BASOPHILS 0.3 %; BASOPHILS ABSOLUTE 0.04 10/3/uL (0.0-0.16); EOSINOPHILS 5.6 %; EOSINOPHILS ABSOLUTE 0.79 10/3/uL (0.0-0.53); HEMATOCRIT 26.9 % (36.0-48.0); HEMOGLOBIN 8.3 g/dL (12.0-16.0); IMMATURE GRANULOCYTES 0.5 %; IMMATURE GRANULOCYTES ABSOLUTE 0.07 10/3/uL (0.0-0.11); LYMPHOCYTES 25.4 %; LYMPHOCYTES ABSOLUTE 3.59 10/3/uL (0.67-4.30); MEAN CORPUS HGB CONC 30.9 g/dL (32.0-36.0); MEAN CORPUSCULAR HEMOGLOB 27.9 pg (26.0-34.0); MEAN CORPUSCULAR VOLUME 90.3 fL (80-100); MEAN PLATELET VOLUME 8.9 fL (9.2-13.0); MONOCYTES 7.4 %; MONOCYTES ABSOLUTE 1.05 10/3/uL (0.21-1.20); NEUTROPHILS 60.8 %; NEUTROPHILS ABSOLUTE 8.58 10/3/uL (2.02-8.40); PLATELET COUNT 645 10/3/uL (150-400); RBC DISTRIBUTION WIDTH 15.1 % (12.0-16.0); RED CELL COUNT 2.98 10/6/uL (4.0-5.6); WHITE BLOOD CELLS 14.1 10/3/uL (4.5-10.5)
[2016-11-22 05:28] LABS: ALBUMIN 2.1 G/DL (3.5-5.0); CALCIUM, SERUM 8.7 MG/DL (8.5-10.4); CHLORIDE, SERUM 107 MMOL/L (96-112); CO2 (CARBON DIOXIDE) 27 MMOL/L (24-34); CREATININE 1.45 MG/DL (0.55-1.02); GFR AFRICAN AMERICAN 42 ML/MIN (>=60); GFR NON AFRICAN AMERICAN 36 ML/MIN (>=60); GLUCOSE, SERUM 106 MG/DL (60-99); MANUAL DIFF NO %; PHOSPHORUS, SERUM 3.2 MG/DL (2.5-4.5); POTASSIUM, SERUM 5.2 MMOL/L (3.5-5.3); SODIUM, SERUM 143 MMOL/L (135-148)
[2016-11-22 05:33] LABS: BUN (BLOOD UREA NITROGEN) 29 MG/DL (6-23)
[2016-11-23 04:58] LABS: BASOPHILS 0.4 %; BASOPHILS ABSOLUTE 0.05 10/3/uL (0.0-0.16); EOSINOPHILS ABSOLUTE 0.72 10/3/uL (0.0-0.53); HEMOGLOBIN 7.9 g/dL (12.0-16.0); IMMATURE GRANULOCYTES 0.4 %; IMMATURE GRANULOCYTES ABSOLUTE 0.05 10/3/uL (0.0-0.11); LYMPHOCYTES 30.6 %; LYMPHOCYTES ABSOLUTE 3.67 10/3/uL (0.67-4.30); MEAN CORPUS HGB CONC 30.4 g/dL (32.0-36.0); MEAN CORPUSCULAR HEMOGLOB 27.4 pg (26.0-34.0); MEAN CORPUSCULAR VOLUME 90.3 fL (80-100); MEAN PLATELET VOLUME 8.6 fL (9.2-13.0); MONOCYTES 7.2 %; MONOCYTES ABSOLUTE 0.86 10/3/uL (0.21-1.20); NEUTROPHILS 55.4 %; NEUTROPHILS ABSOLUTE 6.65 10/3/uL (2.02-8.40); PLATELET COUNT 677 10/3/uL (150-400); RBC DISTRIBUTION WIDTH 14.9 % (12.0-16.0); RED CELL COUNT 2.88 10/6/uL (4.0-5.6)
[2016-11-23 04:59] LABS: MANUAL DIFF NO %
[2016-11-23 05:11] LABS: BUN (BLOOD UREA NITROGEN) 31 MG/DL (6-23); CALCIUM, SERUM 8.7 MG/DL (8.5-10.4); CHLORIDE, SERUM 105 MMOL/L (96-112); CO2 (CARBON DIOXIDE) 28 MMOL/L (24-34); CREATININE 1.33 MG/DL (0.55-1.02); GFR AFRICAN AMERICAN 47 ML/MIN (>=60); GFR NON AFRICAN AMERICAN 40 ML/MIN (>=60); GLUCOSE, SERUM 97 MG/DL (60-99); POTASSIUM, SERUM 4.8 MMOL/L (3.5-5.3); SODIUM, SERUM 140 MMOL/L (135-148)
[2016-11-24 04:05] LABS: BASOPHILS 0.4 %; BASOPHILS ABSOLUTE 0.05 10/3/uL (0.0-0.16); EOSINOPHILS ABSOLUTE 0.71 10/3/uL (0.0-0.53); HEMATOCRIT 26.8 % (36.0-48.0); HEMOGLOBIN 8.2 g/dL (12.0-16.0); IMMATURE GRANULOCYTES 0.3 %; IMMATURE GRANULOCYTES ABSOLUTE 0.04 10/3/uL (0.0-0.11); LYMPHOCYTES 28.3 %; LYMPHOCYTES ABSOLUTE 3.36 10/3/uL (0.67-4.30); MEAN CORPUS HGB CONC 30.6 g/dL (32.0-36.0); MEAN CORPUSCULAR HEMOGLOB 27.5 pg (26.0-34.0); MEAN CORPUSCULAR VOLUME 89.9 fL (80-100); MEAN PLATELET VOLUME 8.5 fL (9.2-13.0); MONOCYTES 6.1 %; MONOCYTES ABSOLUTE 0.73 10/3/uL (0.21-1.20); NEUTROPHILS 58.9 %; PLATELET COUNT 665 10/3/uL (150-400); RED CELL COUNT 2.98 10/6/uL (4.0-5.6); WHITE BLOOD CELLS 11.9 10/3/uL (4.5-10.5)
[2016-11-24 04:07] LABS: MANUAL DIFF NO %
[2016-11-24 04:16] LABS: ALBUMIN 2.2 G/DL (3.5-5.0); BUN (BLOOD UREA NITROGEN) 25 MG/DL (6-23); CALCIUM, SERUM 9.2 MG/DL (8.5-10.4); CHLORIDE, SERUM 109 MMOL/L (96-112); CO2 (CARBON DIOXIDE) 26 MMOL/L (24-34); CREATININE 1.23 MG/DL (0.55-1.02); GFR AFRICAN AMERICAN 51 ML/MIN (>=60); GFR NON AFRICAN AMERICAN 44 ML/MIN (>=60); GLUCOSE, SERUM 116 MG/DL (60-99); PHOSPHORUS, SERUM 3.4 MG/DL (2.5-4.5); POTASSIUM, SERUM 4.9 MMOL/L (3.5-5.3); SODIUM, SERUM 143 MMOL/L (135-148)
[2016-11-25 05:15] LABS: BUN (BLOOD UREA NITROGEN) 28 MG/DL (6-23); CALCIUM, SERUM 8.9 MG/DL (8.5-10.4); CHLORIDE, SERUM 105 MMOL/L (96-112); CO2 (CARBON DIOXIDE) 27 MMOL/L (24-34); CREATININE 1.23 MG/DL (0.55-1.02); GFR AFRICAN AMERICAN 51 ML/MIN (>=60); GFR NON AFRICAN AMERICAN 44 ML/MIN (>=60); GLUCOSE, SERUM 102 MG/DL (60-99); POTASSIUM, SERUM 4.8 MMOL/L (3.5-5.3); SODIUM, SERUM 143 MMOL/L (135-148)
[2016-11-25 05:22] LABS: BASOPHILS 0.5 %; BASOPHILS ABSOLUTE 0.05 10/3/uL (0.0-0.16); EOSINOPHILS ABSOLUTE 0.76 10/3/uL (0.0-0.53); HEMOGLOBIN 8.2 g/dL (12.0-16.0); IMMATURE GRANULOCYTES 0.5 %; IMMATURE GRANULOCYTES ABSOLUTE 0.05 10/3/uL (0.0-0.11); LYMPHOCYTES 33.1 %; LYMPHOCYTES ABSOLUTE 3.61 10/3/uL (0.67-4.30); MANUAL DIFF NO %; MEAN CORPUS HGB CONC 30.4 g/dL (32.0-36.0); MEAN CORPUSCULAR HEMOGLOB 27.3 pg (26.0-34.0); MEAN PLATELET VOLUME 8.5 fL (9.2-13.0); MONOCYTES 7.4 %; MONOCYTES ABSOLUTE 0.81 10/3/uL (0.21-1.20); NEUTROPHILS 51.5 %; NEUTROPHILS ABSOLUTE 5.64 10/3/uL (2.02-8.40); PLATELET COUNT 647 10/3/uL (150-400); RBC DISTRIBUTION WIDTH 15.3 % (12.0-16.0); WHITE BLOOD CELLS 10.9 10/3/uL (4.5-10.5)
== END 2016-11-27 14:41 | DRG 856 ==
LOC: ER 23:00 → 5NO 11-12 06:37
PROVIDERS: Emergency Medicine; Hospitalist; Internal Medicine; Nurse Practitioner Acute Care; Nurse Practitioner Family; Thoracic Surgery (Cardiothoracic Vascular Surgery)
DX: T81.4XXA Infection following a procedure, initial encounter (principal); A41.9 Sepsis, unspecified organism; N17.9 Acute kidney failure, unspecified; G93.41 Metabolic encephalopathy; M86.68 Other chronic osteomyelitis, other site; N18.3 Chronic kidney disease, stage 3 (moderate); I50.22 Chronic systolic (congestive) heart failure; I13.0 Hypertensive heart and chronic kidney disease with heart failure and stage 1 through stage 4 chronic kidney disease, or unspecified chronic kidney disease; Z68.41 Body mass index [BMI] 40.0-44.9, adult; B95.61 Methicillin susceptible Staphylococcus aureus infection as the cause of diseases classified elsewhere; I25.10 Atherosclerotic heart disease of native coronary artery without angina pectoris; Z95.1 Presence of aortocoronary bypass graft; Z87.891 Personal history of nicotine dependence; I70.213 Atherosclerosis of native arteries of extremities with intermittent claudication, bilateral legs; E66.9 Obesity, unspecified; E11.22 Type 2 diabetes mellitus with diabetic chronic kidney disease; Z87.440 Personal history of urinary (tract) infections; M10.9 Gout, unspecified; M1A.9XX1 Chronic gout, unspecified, with tophus (tophi)
CPT/HCPCS: 36415; 36569; 36600; 70450; 71010; 71550; 73630-RT; 80048; 80053; 80069; 81001; 82805; 82962; 83036; 83605; 83735; 84132; 84145; 84443; 84484; 84550; 85025; 85610; 85652; 85730; 86140; 86850; 86900; 86901; 87040; 87070; 87077; 87186; 87205; 88300; 88304; 93005; 93923; 93970; 97110-GO; 97110-GP; 97116-GP; 97161-GP; 97166-GO; 97530-GP; 99285; A9270-GY; C1751; J0690; J1170; J2250; J2270; J2370; J2405; J2710; J2930; J3010; J3370